=== PATIENT | male | born 1955 | race Caucasian/White ===

== ENCOUNTER 2018-03-19 13:05 | Emergency (ER) | payer MEDICARE, MEDICAID ==
[~2018-03-19] VITALS: Ht 175.3 cm; Wt 75.2 kg
[~2018-03-19 13:05] MED LIST: ASPI-1265 PO; CYCL-1 PO; GABA-532 PO; SYN0.088T PO
[2018-03-19 13:28] VITALS: BP 123/70
== END 2018-03-19 14:43 | disposition home or self-care (01) ==
LOC: ER 13:05
DX: H92.03 Otalgia, bilateral (principal); G89.29 Other chronic pain; Z88.0 Allergy status to penicillin; Z88.5 Allergy status to narcotic agent; Z79.82 Long term (current) use of aspirin; Z79.899 Other long term (current) drug therapy
CPT/HCPCS: 99281

== ENCOUNTER 2018-06-17 11:45 | Emergency (ER) | payer MEDICARE, MEDICAID ==
[~2018-06-17] VITALS: Ht 175.3 cm; Wt 69.0 kg
[2018-06-17 11:57] VITALS: BP 136/73
[2018-06-17] MEDS ORDERED: ALBU6.7H INH (12:34)
== END 2018-06-17 12:39 | disposition home or self-care (01) ==
LOC: ER 11:46
DX: R07.81 Pleurodynia (principal); G89.29 Other chronic pain; Z88.0 Allergy status to penicillin; Z88.5 Allergy status to narcotic agent; Z79.82 Long term (current) use of aspirin; Z79.899 Other long term (current) drug therapy
CPT/HCPCS: 93005; 99283

== ENCOUNTER 2019-01-10 12:04 | Emergency (ER) | payer MEDICARE, MEDICAID ==
[~2019-01-10] VITALS: Ht 175.3 cm; Wt 72.7 kg
[~2019-01-10 12:04] MED LIST changes: +ALBU6.7H9 INH
[2019-01-10 12:23] VITALS: BP 129/72
[2019-01-10] MEDS ORDERED: SULF1TAB49 PO (13:33)
== END 2019-01-10 13:44 | disposition home or self-care (01) ==
LOC: ER 12:05
DX: L02.11 Cutaneous abscess of neck (principal); G89.29 Other chronic pain; Z90.89 Acquired absence of other organs; Z88.0 Allergy status to penicillin; Z88.5 Allergy status to narcotic agent; Z79.82 Long term (current) use of aspirin; Z79.899 Other long term (current) drug therapy
CPT/HCPCS: 99283

== ENCOUNTER 2019-02-12 19:42 | Emergency (ER) | payer MEDICARE, MEDICAID ==
[~2019-02-12] VITALS: Ht 175.3 cm; Wt 72.7 kg
[2019-02-12 19:46] VITALS: BP 155/65
[2019-02-12] MEDS ORDERED: NAPR-56 PO (21:15)
[2019-02-12] MEDS ORDERED: cyclobenzaprine 10mg tablet PO ONE (21:15)
[2019-02-12] MEDS ORDERED: CYCL-1 PO (21:15)
[2019-02-12] MEDS ORDERED: ketorolac trometh inj. 60 MG/2 ML VIAL IM ONE (21:15)
[2019-02-12] MEDS ORDERED: HYDR-4383 PO (21:15)
[2019-02-12] MEDS ORDERED: morphine 10mg/ml inj. IM ONE (21:15)
== END 2019-02-12 21:57 | disposition home or self-care (01) ==
LOC: ER 19:42
DX: M54.42 Lumbago with sciatica, left side (principal); G89.29 Other chronic pain; F17.200 Nicotine dependence, unspecified, uncomplicated; Z98.890 Other specified postprocedural states; Z88.0 Allergy status to penicillin; Z88.5 Allergy status to narcotic agent; Z79.82 Long term (current) use of aspirin; Z79.899 Other long term (current) drug therapy
CPT/HCPCS: 96372; 99283; J1885; J2270

== ENCOUNTER 2019-03-18 14:46 | Emergency (ER) | payer MEDICARE, MEDICAID ==
[~2019-03-18] VITALS: Ht 175.3 cm; Wt 78.8 kg
[~2019-03-18 14:46] MED LIST changes: +HYDR-4383 PO
[2019-03-18 15:32] LABS: BASOPHILS # (AUTO) 0.1 X10'3 (0-0.2); BASOPHILS % (AUTO) 0.9 % (0-1); EOSINOPHILS # (AUTO) 0.2 X10'3 (0-0.9); EOSINOPHILS % (AUTO) 2.1 % (0-6); HEMATOCRIT 48.6 % (42.0-52.0); HEMOGLOBIN 16.7 g/dl (14.0-17.9); LYMPHOCYTES % (AUTO) 13.7 % (21-51); MEAN CORPUSCULAR HGB CONC 34.4 g/dL (33.0-36.5); MEAN CORPUSCULAR VOLUME 87.2 FL (78-98); MONOCYTES # (AUTO) 0.4 X10'3 (0-0.9); NEUTROPHILS # (AUTO) 5.7 X10'3 (1.8-7.7); NEUTROPHILS % (AUTO) 77.3 % (42-75); PLATELET COUNT 287 X10'3 (140-440); RED BLOOD COUNT 5.57 X10'6 (4.70-6.10); RED CELL DISTRIBUTION WIDTH 13.3 % (11.5-14.5); WHITE BLOOD COUNT 7.3 X10'3 (4.5-11.0)
[2019-03-18 15:33] LABS: CLARITY,URINE CLEAR (Clear); COLOR,URINE YELLOW (Yellow); GLUCOSE, URINE NEGATIVE (Neg); KETONES,URINE NEGATIVE (Neg); LEUKOCYTE ESTERASE ,URINE NEGATIVE (Neg); NITRITES, URINE NEGATIVE (Neg); OCCULT BLOOD,URINE NEGATIVE (Neg); PH,URINE 5.5 (4.8-8.0); PROTEIN,URINE NEGATIVE (Neg); UROBILINOGEN,URINE 0.2 E.U/dL (0.2-1.0)
[2019-03-18 15:44] LABS: UA COLLECTION TYPE CLN CATCH MIDSTREAM
[2019-03-18 16:01] LABS: ALANINE AMINOTRANSFERASE 51 U/L (12-78); ALBUMIN 3.9 G/DL (3.4-5.0); ALBUMIN/GLOBULIN RATIO 1.2 (1.1-1.5); ALKALINE PHOSPHATASE 75 IU/L (46-116); ANION GAP 7 (8-16); ASPARTATE AMINO TRANSFERASE 22 U/L (10-37); BILIRUBIN,TOTAL 0.6 MG/DL (0.1-1.0); BLOOD UREA NITROGEN 11 MG/DL (7-18); BUN/CREATININE RATIO 9.8 (5.4-32.0); CALCIUM 8.8 MG/DL (8.5-10.1); CHLORIDE 106 MMOL/L (99-107); CREATININE 1.12 MG/DL (0.60-1.10); GLUCOSE 110 MG/DL (70-104); LIPASE 93 U/L (73-393); POTASSIUM 3.4 MMOL/L (3.5-5.1); SODIUM 141 MMOL/L (135-145); TOTAL CARBON DIOXIDE 27.6 MMOL/L (24-32); TOTAL PROTEIN 7.2 G/DL (6.4-8.2); eGFR 66 ML/MIN
[2019-03-18] MEDS ORDERED: potassium Cl 20 mEq SR tablet PO STA (16:02)
[2019-03-18 16:18] VITALS: BP 150/95
--- NOTE | 2019-03-18 16:24 | NUR ---
PT D/C PRIOR TO NURSE ASSESSMENT
== END 2019-03-18 16:25 | disposition home or self-care (01) ==
LOC: ER 14:46
DX: R10.9 Unspecified abdominal pain (principal); E87.6 Hypokalemia; E07.9 Disorder of thyroid, unspecified; G89.29 Other chronic pain; F17.200 Nicotine dependence, unspecified, uncomplicated; Z98.890 Other specified postprocedural states; Z88.0 Allergy status to penicillin; Z88.5 Allergy status to narcotic agent; Z79.82 Long term (current) use of aspirin; Z79.899 Other long term (current) drug therapy
CPT/HCPCS: 36415; 80053; 81003; 83690; 85025; 99283

== ENCOUNTER 2019-06-17 13:07 | Emergency (ER) | payer BC, MEDICAID ==
[~2019-06-17] VITALS: Ht 175.3 cm; Wt 81.0 kg
[2019-06-17 13:09] VITALS: BP 116/56
== END 2019-06-17 14:13 | disposition home or self-care (01) ==
LOC: ER 13:08
DX: T83.038A Leakage of other urinary catheter, initial encounter (principal); G62.2 Polyneuropathy due to other toxic agents; B88.8 Other specified infestations; G89.29 Other chronic pain; Z98.890 Other specified postprocedural states; Z88.5 Allergy status to narcotic agent; Z79.82 Long term (current) use of aspirin; Z79.899 Other long term (current) drug therapy; Y69 Unspecified misadventure during surgical and medical care; Y92.89 Other specified places as the place of occurrence of the external cause
CPT/HCPCS: 51702; 99284

== ENCOUNTER 2019-06-21 23:42 | Emergency (ER) | payer BC, MEDICAID ==
[~2019-06-21] VITALS: Ht 175.3 cm; Wt 72.0 kg
[2019-06-21 23:47] VITALS: BP 146/93
[2019-06-22] MEDS ORDERED: ibuprofen tablet 400 MG TABLET PO ONE (00:25)
[2019-06-22] MEDS ORDERED: ibuprofen 200mg tablet PO ONE (00:35)
[2019-06-22] MEDS ORDERED: CEPH500C5 PO (01:27)
== END 2019-06-22 01:58 | disposition home or self-care (01) ==
LOC: ER 23:42
DX: S60.413A Abrasion of left middle finger, initial encounter (principal); G89.29 Other chronic pain; F10.99 Alcohol use, unspecified with unspecified alcohol-induced disorder; Z88.8 Allergy status to other drugs, medicaments and biological substances; Z79.82 Long term (current) use of aspirin; Z79.899 Other long term (current) drug therapy; X50.1XXA Overexertion from prolonged static or awkward postures, initial encounter; Y93.89 Activity, other specified; Y92.89 Other specified places as the place of occurrence of the external cause; Y99.8 Other external cause status; Y90.9 Presence of alcohol in blood, level not specified
CPT/HCPCS: 73130; 99283

== ENCOUNTER 2021-03-25 02:35 | Emergency (ER) | payer BC, MEDICAID ==
[~2021-03-25] VITALS: Ht 175.3 cm; Wt 72.7 kg
[2021-03-25 02:39] VITALS: BP 149/115
[2021-03-25] MEDS ORDERED: LIDOcaine Viscous 15ml cup TP ONE (02:45)
== END 2021-03-25 03:32 | disposition home or self-care (01) ==
LOC: ER 02:36
DX: T16.2XXA Foreign body in left ear, initial encounter (principal); G89.29 Other chronic pain; Z72.89 Other problems related to lifestyle; Z98.52 Vasectomy status; Z79.82 Long term (current) use of aspirin; Z79.899 Other long term (current) drug therapy; Z88.8 Allergy status to other drugs, medicaments and biological substances; X58.XXXA Exposure to other specified factors, initial encounter; Y93.89 Activity, other specified; Y92.89 Other specified places as the place of occurrence of the external cause; Y99.8 Other external cause status
CPT/HCPCS: 99283; 99284